=== PATIENT | male | born 1995 | race Asian ===

== ENCOUNTER → 2016-08-06 | Outpatient (CLI) | payer OTHER ==
--- NOTE | 2016-08-06 12:08 | REP ---
MAXILLOFACIAL CT STUDY WITH OUT IV CONTRAST: HISTORY: Chronic pansinusitis. TECHNIQUE: Helical scanning is acquired and 3 mm axial images are reformatted. Coronal multiplanar re-formation images are generated. CT FINDINGS: The visualized intracranial structures are unremarkable. No intraorbital abnormality is appreciated. There is complete opacification of the left frontal and of most of the left ethmoid air cells. There is nearly complete opacification of the left maxillary sinus. There is moderate mucosal thickening affecting the right maxillary sinus. Sphenoid right frontal and the right ethmoid sinuses are essentially clear. Mastoid aeration is normal and symmetric. Bony sinus margins appear intact. The bony nasal septum deviates to the right with a minimal beak. The left middle turbinate is quite hypertrophied and there is mucosal thickening, which fills most of the left nasal cavity superiorly. There is moderate mucosal thickening producing severe narrowing of the ostiomeatal complex on the right. The left OMC is completely obscured by mucosal thickening. The left uncinate process appears to be displaced downward and is not well seen. Mucosal thickening fills the frontoethmoid recesses on the left. No definite nasal polyp is seen. IMPRESSION: Advanced Sonya sinusitis changes left more so than right. Bilateral OMC disease as above. Rightward deviation of the nasal septum with hypertrophy of the middle turbinate on the left. Signed by Toney Heaton MD 08/06/2016 01:00 P
== END ==
LOC: M RAD 06:56 → EDSEX 07:30
PROVIDERS: ATTEND Otolaryngology
DX: J32.4 Chronic pansinusitis (principal)

== ENCOUNTER → 2017-05-13 | Outpatient (CLI) | payer OTHER | LOC: M RAD 10:00 | DX: J32.4 Chronic pansinusitis (principal); R93.8 Abnormal findings on diagnostic imaging of other specified body structures | CPT/HCPCS: 70486 ==

== ENCOUNTER 2017-06-02 07:28 | Day surgery (SDC) | payer OTHER ==
[2017-06-02] MEDS ORDERED: LIDOCAINE 1% MDV 20ML VIAL SQ (07:45)
[2017-06-02] MEDS ORDERED: MIDAZOLAM INJ 2 MG/2 ML VIAL (J2250) As Ordered (07:51)
[2017-06-02] MEDS ORDERED: fentaNYL 100 MCG/2 ML INJECTION (J3010) As Ordered ×2 (07:51→10:44)
[2017-06-02] MEDS ORDERED: PROPOFOL 200 MG/20 ML VIAL As Ordered ×2 (07:52→09:26)
[2017-06-02] MEDS ORDERED: ROCURONIUM BROMIDE 50 MG/5 ML VIAL As Ordered (07:52)
[2017-06-02] MEDS ORDERED: LIDOCAINE 2% INJ 100 MG/5 ML SDV (FOR ANES.) As Ordered (07:52)
[2017-06-02] MEDS: LR 1,000 ML IV (08:07)
[2017-06-02] MEDS ORDERED: dexameTHASONE 4 MG/ML 1ML VIAL (J1100) As Ordered (09:43)
[2017-06-02] MEDS ORDERED: ONDANSETRON 4MG/2ML VIAL (J2405) As Ordered (09:43)
[2017-06-02] MEDS: EPINEPHrine 1MG/ML INJ 30ML MD-VIAL As Ordered (09:46)
[2017-06-02] MEDS: METHYLENE BLUE 0.5% (5MG/ML) 10 ML AMP (PROVAYBLUE)(Q9968 PER 1MG) As Ordered (09:46)
[2017-06-02] MEDS: LIDOCAINE W/EPINEPHRINE 1% 20ML VIAL As Ordered (09:46)
[2017-06-02] MEDS ORDERED: NEOSTIGMINE 10 MG/10 ML VIAL (J2710) As Ordered (10:15)
[2017-06-02] MEDS ORDERED: GLYCOPYRROLATE INJ 0.2 MG/ML 2 ML VIAL As Ordered (10:15)
[2017-06-02] MEDS ORDERED: MORPHINE 10 MG/ML 1ML VIAL (J2270) IV (11:30)
[2017-06-02] MEDS ORDERED: LR 1,000 ML IV ×2 (11:30)
[2017-06-02] MEDS: fentaNYL 100 MCG/2 ML INJECTION (J3010) IV ×4 (11:48→12:03)
[2017-06-02] MEDS: ACETAMINOPH W/CODEINE #3 TAB UD PO (12:30)
[2017-06-03] MEDS ORDERED: fentaNYL 100 MCG/2 ML INJECTION (J3010) As Ordered (11:09)
== END 2017-06-02 14:40 | disposition home or self-care (01) ==
LOC: M SDC 07:28
DX: J32.4 Chronic pansinusitis (principal); J33.9 Nasal polyp, unspecified; J34.2 Deviated nasal septum; J30.9 Allergic rhinitis, unspecified; Z72.0 Tobacco use
CPT/HCPCS: 31256